=== PATIENT | male | born 1985 | race Caucasian/White ===

== ENCOUNTER 2017-02-25 16:24 | Inpatient (IN) | payer BC ==
[2017-02-25] MEDS ORDERED: HYDROmorphone 1 MG/ML 1 ML SYRINGE IVP STA (16:51)
--- NOTE | 2017-02-25 16:55 | ED ---
General Adult HPI - General Chief complaint: Abdominal Pain Stated complaint: Abd Pain/Sent by Time Seen by Provider: 02/25/17 16:37 Source: patient, RN notes reviewed Mode of arrival: ambulatory Limitations: no limitations - History of Present Illness Initial comments: 31-year-old male presents to the emergency Department chief complaint of right lower quadrant abdominal pain and swelling of the right testicle. Patient states that he started to have some pain around 20 or 30 minutes ago when he was being evaluated different Center but he noticed the swelling about 2:00 today. Patient states is very tender to touch. Patient states he was diagnosed with a urinary tract infection a few days ago and has been on antibiotics. He denies any fever chills nausea vomiting. There were concerned due to the patient's continued symptoms without that they should be evaluated. Patient denies any recent fever, chills, shortness of breath, chest pain, back pain, nausea vomiting, numbness or tingling, dysuria or hematuria, constipation or diarrhea, headaches or visual changes, or any other current symptoms. - Related Data Previous Rx's Medication Instructions Recorded Hydrocodone/Acetaminophen [[place] 1 each PO Q4HR PRN #20 tab 02/23/17 5-325] Ketorolac [Toradol] 10 mg PO Q6HR #15 tab 02/23/17 Levofloxacin [Levaquin] 750 mg PO DAILY #10 tab 02/23/17 Allergies Allergy/AdvReac Type Severity Reaction Status Date / Time No Known Allergies Allergy Verified 02/25/17 16:39 Review of Systems ROS Statement: Those systems with pertinent positive or pertinent negative responses have been documented in the HPI. ROS Other: All systems not noted in ROS Statement are negative. Past Medical History Past Medical History: No Reported History History of Any Multi-Drug Resistant Organisms: None Reported Past Surgical History: No Surgical Hx Reported Past Psychological History: No Psychological Hx Reported Smoking Status: Current every day smoker Past Alcohol Use History: Daily Past Drug Use History: None Reported General Exam - General Exam Comments Initial Comments: General: The patient is awake and alert, in no distress, and does not appear acutely ill. Eye: Pupils are equal, round and reactive to light, extra-ocular movements are intact; there is normal conjunctiva bilaterally. No signs of icterus. Ears, nose, mouth and throat: There are moist mucous membranes and no oral lesions. Neck: The neck is supple, there is no tenderness. Cardiovascular: There is a regular rate and rhythm. No murmur, rub or gallop is appreciated. Respiratory: Lungs are clear to auscultation, respirations are non-labored, breath sounds are equal. No wheezes, stridor, rales, or rhonchi. Gastrointestinal: Soft, non-distended, right lower quadrant tenderness of the abdomen without masses or organomegaly noted patient does have a regard present , no guarding present. No CVA tenderness. Bowel sounds are unremarkable. Back: There is no tenderness to palpation in the midline. There is no obvious deformity. No rashes noted. Musculoskeletal: Normal ROM, no tenderness, There is no pedal edema. There is no calf tenderness or swelling. Sensation intact. Pulses equal bilaterally 2+. Neurological: CN II-XII intact, There are no obvious motor or sensory deficits. Coordination appears grossly intact. Speech is normal. Skin: Skin is warm and dry and no rashes or lesions are noted. Psychiatric: Cooperative, appropriate mood & affect, normal judgment. Limitations: no limitations exam: Present: testicular tenderness, scrotal swelling (Right), circumcision. Absent: urethral discharge, vertical testicular lie Course Vital Signs 02/25/17 02/25/17 16:27 18:53 Temperature 99 F 101.8 F H Pulse Rate 78 67 Respiratory 20 16 Rate Blood Pressure 118/58 125/69 O2 Sat by Pulse 99 98 Oximetry - Reevaluation(s) Reevaluation #1: 02/25/17 19:19 Patient meets sepsis criteria at this time. Medical Decision Making - Medical Decision Making 31-year-old male presents emergency department chief complaint of right lower quadrant abdominal pain. At this time patient's laboratory is reviewed as social elevated white count he does have a very tender abdomen. Workup that showed epididymitis. At this time due to the fact patient denied an outpatient now is developed a fever he continues to have this white count will admit the patient for IV antibiotics. all questions have been answered. - Lab Data Result diagrams: 02/25/17 16:50 02/25/17 16:50 Lab Results 02/25/17 02/25/17 02/25/17 Range/Units 16:50 16:50 18:30 WBC 18.6 H (3.8-10.6) k/uL RBC 3.96 L (4.30-5.90) m/uL Hgb 13.4 (13.0-17.5) gm/dL Hct 39.9 (39.0-53.0) % MCV 100.6 H (80.0-100.0) fL MCH 33.7 (25.0-35.0) pg MCHC 33.5 (31.0-37.0) g/dL RDW 12.7 (11.5-15.5) % Plt Count 242 (150-450) k/uL Neutrophils % 85 % Lymphocytes % 8 % Monocytes % 5 % Eosinophils % 1 % Basophils % 0 % Neutrophils # 15.8 H (1.3-7.7) k/uL Lymphocytes # 1.4 (1.0-4.8) k/uL Monocytes # 0.9 (0-1.0) k/uL Eosinophils # 0.1 (0-0.7) k/uL Basophils # 0.0 (0-0.2) k/uL Sodium 135 L (137-145) mmol/L Potassium 4.0 (3.5-5.1) mmol/L Chloride 99 (98-107) mmol/L Carbon Dioxide 25 (22-30) mmol/L Anion Gap 11 mmol/L BUN 11 (9-20) mg/dL Creatinine 0.96 (0.66-1.25) mg/dL Est GFR (MDRD) Af Amer >60 (>60 ml/min/1.73 sqM) Est GFR (MDRD) Non-Af >60 (>60 ml/min/1.73 sqM) Glucose 92 (74-99) mg/dL Calcium 8.9 (8.4-10.2) mg/dL Total Bilirubin 0.7 (0.2-1.3) mg/dL AST 16 L (17-59) U/L ALT 29 (21-72) U/L Alkaline Phosphatase 74 (38-126) U/L Total Protein 6.7 (6.3-8.2) g/dL Albumin 3.7 (3.5-5.0) g/dL Urine Color Yellow Urine Appearance Cloudy (Clear) Urine pH 6.0 (5.0-8.0) Ur Specific Caroline 1.022 (1.001-1.035) Urine Protein Trace H (Negative) Urine Glucose (UA) Negative (Negative) Urine Ketones Trace H (Negative) Urine Blood Large H (Negative) Urine Nitrite Negative (Negative) Urine Bilirubin Negative (Negative) Urine Urobilinogen <2.0 (<2.0) mg/dL Ur Leukocyte Esterase Large H (Negative) Urine RBC 4 (0-5) /hpf Urine WBC >182 H (0-5) /hpf Urine WBC Clumps Many H (None) /hpf - Radiology Data Radiology results: report reviewed, image reviewed Disposition Clinical Impression: Epididymitis, Pyelonephritis, Failure of outpatient treatment, Sepsis Disposition: ADMITTED IP TO THIS [facility] Condition: Stable Referrals: Mamadou Husain MD [Primary Care Provider] - 1-2 days Time of Disposition: 19:19 Decision Date: 02/25/17 Decision Time: 19:19
[2017-02-25 17:02] LABS: Basophils % (A) 0 %; CH 34.1; Eosinophils # (A) 0.1 k/uL (0-0.7); Eosinophils % (A) 1 %; HCT 39.9 % (39.0-53.0); HDW 2.06; HGB 13.4 gm/dL (13.0-17.5); Luc # (Auto) 0.33; Luc % (Auto) 2; Lymphocytes # (A) 1.4 k/uL (1.0-4.8); Lymphocytes % (A) 8 %; MCH 33.7 pg (25.0-35.0); MCHC 33.5 g/dL (31.0-37.0); MCV 100.6 fL (80.0-100.0); Mean Platelet Volume 6.9; Monocytes # (A) 0.9 k/uL (0-1.0); Monocytes % (A) 5 %; Neutrophils # (A) 15.8 k/uL (1.3-7.7); Neutrophils % (A) 85 %; RBC 3.96 m/uL (4.30-5.90); RDW 12.7 % (11.5-15.5); WBC 18.6 k/uL (3.8-10.6); WBC (Perox) 18.62
[2017-02-25 17:11] LABS: ALT 29 U/L (21-72); AST 16 U/L (17-59); Alkaline Phosphatase 74 U/L (38-126); Anion Gap 11 mmol/L; Blood Urea Nitrogen 11 mg/dL (9-20); Calcium 8.9 mg/dL (8.4-10.2); Carbon Dioxide 25 mmol/L (22-30); Chloride 99 mmol/L (98-107); Glucose 92 mg/dL (74-99); Non-African American GFR(MDRD) >60 (>60 ml/min/1.73 sqM); Sodium 135 mmol/L (137-145); Total Bilirubin 0.7 mg/dL (0.2-1.3); Total Protein 6.7 g/dL (6.3-8.2)
[2017-02-25] MEDS ORDERED: RX INFO: IV CONTRAST WAS GIVEN 1 EACH MISC MISCELLANE PRN (17:47)
--- NOTE | 2017-02-25 17:47 | US ---
EXAMINATION TYPE: US scrotum with doppler. Grayscale and color Doppler Duplex imaging performed of t he scrotum. DATE OF EXAM: 02/25/2017 COMPARISON: NONE CLINICAL HISTORY: Pain. Right testicle pain and edema EXAM MEASUREMENTS: TESTICLES: Right Testicle: 3.6 x 2.5 x 2.8 cm Left Testicle: 3.8 x 1.9 x 2.6 cm EPIDIDYMIS HEAD: Right Epididymis: 1.6 x 0.7 x 1.4 cm Left Epididymis: 0.7 x 0.8 x 0.8 cm Doppler performed to assess for testicular vascularity; good bilateral color flow and waveforms are s een. There is no evidence of testicular torsion. Presence of hydroceles: no Presence of varicoceles: no Hypoechoic area with increased vascularity medial and inferior to testicle measuring 2.0 x 1.4 x 2.8c m IMPRESSION: No testicular torsion or mass. Enlarged right epididymis with hyperemia consistent with e pididymitis.
--- NOTE | 2017-02-25 18:49 | CT ---
EXAMINATION TYPE: CT abdomen pelvis w con DATE OF EXAM: 02/25/2017 COMPARISON: 02/23/2017 HISTORY: RLQ pain with nausea CT DLP: 324.9 mGycm Automated exposure control for dose reduction was used. TECHNIQUE: Helical acquisition of images was performed from the lung bases through the pelvis. CONTRAST: Performed with Oral Contrast and with IV Contrast, patient injected with 100 mL of Omnipaque 300. FINDINGS: There is rectal contrast. Lung bases are clear. There is no pleural effusion. Heart size is normal. Liver spleen pancreas gallbladder appear normal. Bile ducts are not dilated. There is no adrenal mass . There is satisfactory contrast opacification of the kidneys. Right kidney is smaller than the left. There is no evidence of a renal mass. There is no hydronephrosis. There is no retroperitoneal adenop athy. Bladder distends smoothly. There is no ascites. I see no bony destructive process. Appendix sarina ears partly filled with air and posterior to the cecum. I see no intestinal wall thickening. There ar e no dilated loops. IMPRESSION: NEGATIVE CT SCAN OF THE ABDOMEN AND PELVIS. I DO NOT SEE A CAUSE FOR RIGHT LOWER QUADRANT PAIN. APPEN COLEEN APPEARS NORMAL. NO ADVERSE CHANGE COMPARED TO LAST EXAM.
[2017-02-25 18:52] LABS: Appearance,Urine Cloudy (Clear); Bilirubin,Urine Negative (Negative); Glucose,Urine (UA) Negative (Negative); Ketones,Urine Trace (Negative); Leukocyte Esterase,Urine Large (Negative); Nitrite,Urine Negative (Negative); Particle Count 6430; Protein,Urine Trace (Negative); RBC,Urine 4 /hpf (0-5); Specific Gravity,Urine 1.022 (1.001-1.035); UA Billing (MACRO vs. MICRO) MICRO; Urobilinogen,Urine <2.0 mg/dL (<2.0); WBC,Urine >182 /hpf (0-5)
[2017-02-25] MEDS ORDERED: LEVOFLOXACIN 750MG-D5W PMX 750 MG in DEXTROSE/WATER 1 150ML.BAG IVPB STA (19:16)
[2017-02-25] MEDS ORDERED: KETOROLAC 30 MG/ML 1 ML VIAL IVP PRN (19:20)
[2017-02-25] MEDS ORDERED: IBUPROFEN 400 MG TAB PO PRN (19:20)
[2017-02-25] MEDS ORDERED: NALOXONE 0.4 MG/ML 1 ML VIAL IV PRN (19:20)
[2017-02-25] MEDS ORDERED: ONDANSETRON 4 MG/2 ML VIAL IVP PRN (19:20)
[2017-02-25] MEDS ORDERED: cefTRIAXone IN SWFI 1,000 MG/10 ML SYRINGE IVP ONE (19:30)
[2017-02-25] MEDS: SODIUM CHLORIDE 0.9% 1,000 ML IV SCH (19:56)
[2017-02-25] MEDS: ACETAMINOPHEN TAB 325 MG TAB PO PRN (20:09)
[2017-02-25] MEDS: HYDROmorphone 1 MG/ML 1 ML SYRINGE IVP PRN (20:09)
[2017-02-25 22:55] VITALS: BMI 21.5
[2017-02-26] MEDS: HYDROmorphone 1 MG/ML 1 ML SYRINGE IVP PRN ×7 (00:48→21:20)
[2017-02-26] MEDS: SODIUM CHLORIDE 0.9% 1,000 ML IV SCH (07:37)
[2017-02-26 07:50] LABS: Basophils % (A) 0 %; CH 32.9; CHCM 32.5; Eosinophils # (A) 0.1 k/uL (0-0.7); Eosinophils % (A) 1 %; HCT 36.8 % (39.0-53.0); HDW 2.01; Luc # (Auto) 0.24; Luc % (Auto) 2; Lymphocytes # (A) 1.3 k/uL (1.0-4.8); Lymphocytes % (A) 9 %; MCH 33.2 pg (25.0-35.0); MCHC 32.6 g/dL (31.0-37.0); MCV 101.9 fL (80.0-100.0); Macrocytosis Slight; Mean Platelet Volume 7.8; Monocytes # (A) 0.5 k/uL (0-1.0); Monocytes % (A) 4 %; Neutrophils # (A) 12.3 k/uL (1.3-7.7); Neutrophils % (A) 85 %; RBC 3.61 m/uL (4.30-5.90); RDW 13.8 % (11.5-15.5); WBC 14.4 k/uL (3.8-10.6); WBC (Perox) 15.71
[2017-02-26 08:02] LABS: ALT 29 U/L (21-72); AST 13 U/L (17-59); Alkaline Phosphatase 65 U/L (38-126); Anion Gap 9 mmol/L; Blood Urea Nitrogen 9 mg/dL (9-20); Calcium 8.7 mg/dL (8.4-10.2); Carbon Dioxide 24 mmol/L (22-30); Chloride 103 mmol/L (98-107); Glucose 91 mg/dL (74-99); Non-African American GFR(MDRD) >60 (>60 ml/min/1.73 sqM); Potassium 4.4 mmol/L (3.5-5.1); Sodium 136 mmol/L (137-145); Total Bilirubin 0.4 mg/dL (0.2-1.3); Total Protein 5.8 g/dL (6.3-8.2)
[2017-02-26] MEDS: ENOXAPARIN 40 MG/0.4 ML SYRINGE SQ SCH (10:42)
--- NOTE | 2017-02-26 13:36 | HP ---
HISTORY AND PHYSICAL DATE OF ADMISSION: 02/25/17. PRESENTING COMPLAINT: Abdominal pain. HISTORY OF PRESENTING COMPLAINT: This is a pleasant 31-year-old patient of Dr. Husain, unremarkable past medical history. For 3 or 4 days patient has been having abdominal symptoms. The patient states he started off with pain in the upper abdomen and the back, but he noticed pain down in the pelvic area. He also noticed some difficulty in urinating and fullness in the pelvis. The patient did come down to the ER 2 days ago. The patient also noticed his urine to become pink and a bit cloudy. He has been having fevers. Appetite has slightly gone down, tired, fevers, tired, run down. The patient's is at the bedside. Earlier my nurse practitioner, Ms. Mcfaddenelisacarroll had talked to the patient and he asked to be checked for STDs. The patient's bowel movements are fine. REVIEW OF SYSTEMS: CONSTITUTIONAL: Febrile, tired. HEENT: None. RESPIRATORY: None. CARDIOVASCULAR: None. GASTROINTESTINAL: As above. GENITOURINARY: As above. MUSCULOSKELETAL: None. DERMATOLOGIC, HEMATOLOGIC, LYMPHATIC: None. PSYCHIATRY AND NEUROLOGIC: None. PAST MEDICAL HISTORY: None. PAST SURGICAL HISTORY: Arthroscopic knee surgery. SOCIAL HISTORY: . 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 Drinks 2 beers a day. Smokes about half a pack a day. FAMILY HISTORY: Cancer, type unknown. HOME MEDICATIONS: Levaquin 750 mg a day, [place]. ALLERGIES: None. PHYSICAL EXAMINATION: On exam temperature 101.8, pulse 57, respirations 16, blood pressure 120/69, pulse ox 98% on room air. GENERAL APPEARANCE: Thin build, lying in bed tired appearing. EYES: Pupils equal. Conjunctivae normal. HEENT: Oral cavity normal. NECK: JVD not raised. Mass not palpable. RESPIRATORY: Effort, lungs are clear. CARDIOVASCULAR: 1st and 2nd sounds. No edema. ABDOMEN: Soft, some suprapubic tenderness. No tenderness in the liver, flank. Liver and spleen not palpable. LYMPHATIC: No lymph nodes palpable in neck or axillae. PSYCHIATRY: Alert and oriented x3. Mood and affect normal. NEUROLOGICAL: Pupils equal. Cranial nerves grossly intact. Power and sensation grossly intact. INVESTIGATIONS: White count 8.6, hemoglobin 13.4, potassium 4 4. UA positive for blood, leuko esterase, WBC 182. The patient's UA from 02/23/17 did show an RBC of 135. Urine culture is growing E coli. Blood cultures negative. The patient did have a CT scan of the abdomen and pelvis. ASSESSMENT: This is a patient who presents with sepsis picture. Initial symptoms are upper abdomen and then seem to travel down to his pelvis and groin. This could well be a stone with a secondary infection. The patient also did complain is some pinkish urine and discharge in the urine. There was a question about prostatitis and cystitis and STD cannot be ruled out. PLAN: Patient will be started on IV fluids at 150 mL an hour. Put on IV Levaquin. Encourage oral intake. The patient's urine will be sent off for chlamydia and also will try to do a penile swab for gonococcus. We already have a UTI culture that is positive for E coli. Care was discussed the patient. Repeat labs in the morning. Will get a urology opinion. MMODL / IJN: [id number] /
[2017-02-26] MEDS: LACTATED RINGERS 1,000 ML IV SCH ×2 (13:41→22:11)
[2017-02-26] MEDS: NICOTINE 14MG/24HR PATCH TRANSDERM SCH (13:45)
[2017-02-26] MEDS: IBUPROFEN 600 MG TAB PO SCH ×2 (16:50→22:11)
[2017-02-26] MEDS: LEVOFLOXACIN 750MG-D5W PMX 750 MG in DEXTROSE/WATER 1 150ML.BAG IVPB SCH (16:52)
[2017-02-27] MEDS: LACTATED RINGERS 1,000 ML IV SCH ×4 (04:33→20:58)
[2017-02-27 07:10] LABS: Basophils % (A) 0 %; CH 32.7; Eosinophils # (A) 0.1 k/uL (0-0.7); Eosinophils % (A) 1 %; HCT 37.7 % (39.0-53.0); HDW 2.03; HGB 12.1 gm/dL (13.0-17.5); Luc # (Auto) 0.28; Luc % (Auto) 3; Lymphocytes # (A) 1.4 k/uL (1.0-4.8); Lymphocytes % (A) 16 %; MCH 32.9 pg (25.0-35.0); MCHC 32.1 g/dL (31.0-37.0); MCV 102.6 fL (80.0-100.0); Macrocytosis Slight; Mean Platelet Volume 7.5; Monocytes # (A) 0.4 k/uL (0-1.0); Monocytes % (A) 5 %; Neutrophils # (A) 6.5 k/uL (1.3-7.7); Neutrophils % (A) 74 %; RBC 3.67 m/uL (4.30-5.90); RDW 14.1 % (11.5-15.5); WBC 8.8 k/uL (3.8-10.6)
[2017-02-27 07:18] LABS: Anion Gap 5 mmol/L; Blood Urea Nitrogen 9 mg/dL (9-20); Calcium 9.3 mg/dL (8.4-10.2); Carbon Dioxide 30 mmol/L (22-30); Chloride 106 mmol/L (98-107); Glucose 91 mg/dL (74-99); Non-African American GFR(MDRD) >60 (>60 ml/min/1.73 sqM); Potassium 4.9 mmol/L (3.5-5.1); Sodium 141 mmol/L (137-145)
--- NOTE | 2017-02-27 08:40 | P.PN ---
Subjective Progress Note Date: 02/27/17 The patient is in the hospital with an epididymitis and prostatitis. He is on culture specific antibiotics. He is doing better today. His white count is down to 8.8. The Motrin added to the antibiotics has helped in the swelling is decreased. From a urologic standpoint he can be discharged home when he can tolerate the pain on oral medication. He would need to be seen in my office in about one week. He'll need to be at least on 28 days of antibiotics. He should be on Motrin for another 5 days 600 3 times a day. Objective - Vital Signs Vital signs: Vital Signs Temp 98.0 F 02/26/17 23:00 Pulse 53 L 02/26/17 23:00 Resp 16 02/26/17 23:00 BP 117/55 02/26/17 23:00 Pulse Ox 98 02/26/17 23:00 Intake & Output 02/26/17 02/27/17 02/27/17 18:59 06:59 18:59 Intake Total 850 1040 Balance 850 1040 Weight 76.204 kg Intake: IV 850 450 Lactated Ringers 1,000 ml 150 450 @ 150 mls/hr IV .Q6H40M JACQUIE Rx#:[id number] Sodium Chloride 0.9% 1, 700 000 ml @ 100 mls/hr IV . Q10H JACQUIE Rx#:[id number] Oral 590 Other: # Voids 2 1 - Labs CBC & Chem 7: 02/27/17 06:23 02/27/17 06:23 Labs: Abnormal Lab Results - Last 24 Hours (Table) 02/27/17 Range/Units 06:23 RBC 3.67 L (4.30-5.90) m/uL Hgb 12.1 L (13.0-17.5) gm/dL Hct 37.7 L (39.0-53.0) % MCV 102.6 H (80.0-100.0) fL Microbiology - Last 24 Hours (Table) 02/25/17 18:30 Urine Culture - Final Urine,Voided 02/25/17 19:40 Blood Culture - Preliminary Blood No Growth after 24 hours
[2017-02-27] MEDS: ENOXAPARIN 40 MG/0.4 ML SYRINGE SQ SCH (09:21)
[2017-02-27] MEDS: NICOTINE 14MG/24HR PATCH TRANSDERM SCH (09:21)
[2017-02-27] MEDS: IBUPROFEN 600 MG TAB PO SCH ×3 (09:22→21:31)
--- NOTE | 2017-02-27 17:10 | P.PN ---
Progress Note - Text Progress Note Date: 02/27/17 DATE OF SERVICE: 02/27/2017 PRESENTING COMPLAINT: Abdominal pain HISTORY OF PRESENT ILLNESS: 31-year-old male presented with abdominal pain started in his upper abdomen and back and went down to his pelvic area noticed some difficulty urinating of fullness in the pelvis. Did come to the ER couple of days ago. Noticed his urine to become more pink and cloudy with fevers, appetite is decreased, fevers , tired, run down and was admitted for the same. INTERVAL HISTORY: 02/27/2017: Patient lying in bed appears more comfortable today. Continues to have right- sided abdominal pain that radiates down to his groin, scrotum continues to be red swollen tender to palpation. Patient states his urinary symptoms are improving. Tolerating his diet, able to ambulate to and from the bathroom, last BM 02/26/2017. REVIEW OF SYSTEMS: Done for constitutional ,cardiovascular, GI, pulmonary with relevant findings as above. CURRENT MEDICATIONS Acetaminophen, Lovenox, Dilaudid, Motrin, Toradol, levofloxacin IV, nicotine patch, Zofran. PHYSICAL EXAM VITAL SIGNS: Temperature 97.6, pulse 60, respiratory rate 16, blood pressure 124/74, oxygen saturation 98% on room air. GENERAL APPEARANCE: Lying in bed, not in distress. EYES: Pupils equal. Conjunctiva normal. NECK: JVD not raised. Mass not palpable. RESPIRATORY: Respiratory effort normal. Lungs clear to auscultation. CARDIOVASCULAR: First and second sounds normal. No edema. ABDOMEN: Soft. Liver and spleen not palpable. Mild right quadrant tenderness. No mass palpable. PSYCHIATRY: Alert and oriented x3. Mood and affect normal. GENITOURINARY: Testicles warm, red tender to palpation swollen INVESTIGATIONS: White blood cell count 8.8, hemoglobin 12.1, BMP unremarkable. ASSESSMENT: -Acute urinary tract infection from E coli causing acute cystitis, acute Epididymitis and acute prostatitis, causing sepsis on presentation -Acute urinary tract infection with urine culture growing E. coli, PLAN: IV fluids at 150 mL an hour, IV Levaquin, encourage oral intake. Urine was sent for chlamydia and penile swab for gonococcus pending. If patient remains afebrile will be discharged tomorrow. Plan of care discussed with patient he is in agreement. GLOBE TESTER statement: Patient was seen and examined by nurse practitioner Xena Griffin and all elements of the case discussed with attending Dr. Toussaint
[2017-02-27] MEDS: LEVOFLOXACIN 750MG-D5W PMX 750 MG in DEXTROSE/WATER 1 150ML.BAG IVPB SCH (17:21)
[2017-02-27 22:16] VITALS: RESP 16
--- NOTE | 2017-02-27 22:52 | PN ---
PROGRESS NOTE DATE OF SERVICE: 02/27/17. ATTENDING NOTE: The patient is seen and examined by me. I discussed with nurse practitioner, Ms. Griffin. This is a patient who now seems to have had acute UTI with cystitis, prostatitis and epididymitis. Overall doing better. Fevers are coming down. Tolerating a diet. This patient is seen and examined by me. I discussed with my nurse practitioner, Ms. Griffin. PHYSICAL EXAMINATION: On examination afebrile. Pulse 60, respirations 16, blood pressure 120/74. Lungs are clear. Cardiovascular first and second sounds normal. Abdomen tenderness nearly resolved. White count 8.8. Urine cultures growing E coli. ASSESSMENT: Acute urinary tract infection from E coli along with causing acute cystitis, acute prostatitis and acute epididymitis. PLAN: If the patient remains afebrile for next 24 hours, patient will be discharged overall doing better. Care was discussed with the patient. The patient's PSA was 0.95. I did talk to the patient. Patient has no STD risk factors and has no sexual intercourse outside of his marriage. MMODL / IJN: [id number] /
[2017-02-28] MEDS: ACETAMINOPHEN TAB 325 MG TAB PO PRN (00:06)
[2017-02-28 07:13] LABS: Basophils % (A) 0 %; CH 33.8; CHCM 32.8; Eosinophils # (A) 0.1 k/uL (0-0.7); Eosinophils % (A) 2 %; HCT 38.6 % (39.0-53.0); HDW 2.07; Luc # (Auto) 0.18; Luc % (Auto) 2; Lymphocytes # (A) 1.7 k/uL (1.0-4.8); Lymphocytes % (A) 18 %; MCH 32.3 pg (25.0-35.0); MCHC 31.2 g/dL (31.0-37.0); MCV 103.4 fL (80.0-100.0); Macrocytosis Slight; Mean Platelet Volume 7.1; Monocytes # (A) 0.4 k/uL (0-1.0); Monocytes % (A) 4 %; Neutrophils # (A) 6.7 k/uL (1.3-7.7); Neutrophils % (A) 73 %; RBC 3.73 m/uL (4.30-5.90); RDW 12.7 % (11.5-15.5); WBC 9.2 k/uL (3.8-10.6); WBC (Perox) 9.46
[2017-02-28] MEDS: LACTATED RINGERS 1,000 ML IV SCH ×2 (07:30→16:01)
[2017-02-28 07:32] LABS: Anion Gap 8 mmol/L; Blood Urea Nitrogen 10 mg/dL (9-20); Calcium 9.1 mg/dL (8.4-10.2); Carbon Dioxide 27 mmol/L (22-30); Chloride 106 mmol/L (98-107); Glucose 89 mg/dL (74-99); Non-African American GFR(MDRD) >60 (>60 ml/min/1.73 sqM); Potassium 4.5 mmol/L (3.5-5.1); Sodium 141 mmol/L (137-145)
[2017-02-28 07:57] VITALS: BP 110/67; PULSE 59; TEMP 98
[2017-02-28] MEDS: IBUPROFEN 600 MG TAB PO SCH ×2 (08:16→16:00)
[2017-02-28] MEDS: NICOTINE 14MG/24HR PATCH TRANSDERM SCH (08:16)
[2017-02-28] MEDS: ENOXAPARIN 40 MG/0.4 ML SYRINGE SQ SCH (08:18)
--- NOTE | 2017-02-28 10:24 | P.PN ---
Subjective Progress Note Date: 02/28/17 The patient is in the hospital for an acute epididymal orchitis that failed outpatient therapy. He is feeling much better. He is on culture specific antibiotic. His swelling is much less. From a urologic standpoint he can be discharged home on antibiotic. He's been instructed to take Motrin 600 mg 3 times a day for the week. I would like to see him in the office in one week. Objective - Vital Signs Vital signs: Vital Signs Temp 98 F 02/28/17 07:00 Pulse 59 L 02/28/17 10:12 Resp 16 02/28/17 10:12 BP 110/67 02/28/17 07:00 Pulse Ox 99 02/28/17 07:00 Intake & Output 02/27/17 02/28/17 02/28/17 18:59 06:59 18:59 Intake Total 1200 1180 Balance 1200 1180 Intake: IV 1200 Lactated Ringers 1,000 ml 1200 @ 150 mls/hr IV .Q6H40M JACQUIE Rx#:[id number] Oral 1180 Other: Voiding Method Toilet Toilet Toilet Urinal # Voids 1 2 # Bowel Movements 2 - Labs CBC & Chem 7: 02/28/17 06:37 02/28/17 06:37 Labs: Abnormal Lab Results - Last 24 Hours (Table) 02/28/17 Range/Units 06:37 RBC 3.73 L (4.30-5.90) m/uL Hgb 12.0 L (13.0-17.5) gm/dL Hct 38.6 L (39.0-53.0) % MCV 103.4 H (80.0-100.0) fL Microbiology - Last 24 Hours (Table) 02/25/17 19:40 Blood Culture - Preliminary Blood No Growth after 48 hours
--- NOTE | 2017-03-01 05:26 | DS ---
DISCHARGE SUMMARY DATE OF ADMISSION: 02/25/17. DATE OF DISCHARGE: 02/28/17. FINAL DIAGNOSES: Acute severe urinary tract infection from E coli causing acute cystitis, acute prostatitis and acute epididymidis causing sepsis. HOSPITAL COURSE: This patient presented with a deep pelvic pain felt to be a combination of prostatitis, UTI, cystitis, and probably epididymidis with some scrotal involvement. The patient's urine culture from 02/23/17 was positive for E coli when he first had come to the ER. Doing much better at the time of discharge, has become afebrile. White count has normalized. Apparently improved. Urine symptoms completely resolved. The patient is seen by Dr. Sparks from Urology who will see the patient as an outpatient. Today care was discussed the patient and . Questions were answered. EXAMINATION: ABDOMEN: Soft, nontender. LUNGS: Clear. DC MEDICATIONS: 1. Motrin 600 mg p.o. t.i.d. 15 tablets. 2. Levaquin 750 mg p.o. daily, 25 tablets. 3. Nicotine 14 mg patch. The patient encouraged to drink more water. Follow up with Dr. Husain in 3 days, follow up with Dr. Sparks in 1 week. Discharge planning more than 35 minutes. MMODL / IJN: [id number] /
== END 2017-02-28 16:15 | disposition home or self-care (01) | DRG 872 ==
LOC: EC 16:24 → 5MS5E 19:27
PROVIDERS: ADMIT Hospitalist; ATTEND Hospitalist
DX: A41.51 Sepsis due to Escherichia coli [E. coli] (principal); N30.00 Acute cystitis without hematuria; N41.0 Acute prostatitis; N45.3 Epididymo-orchitis; F17.210 Nicotine dependence, cigarettes, uncomplicated; Z79.2 Long term (current) use of antibiotics; Z79.891 Long term (current) use of opiate analgesic
CPT/HCPCS: 36415; 74177; 76870; 80048; 80053; 81001; 83605; 85025; 87040; 87086; 93975; 96365; 96375; 96376; 99285

== ENCOUNTER → 2020-09-09 | Outpatient (CLI) | payer MEDICAID ==
--- NOTE | 2020-09-10 06:34 | MR ---
EXAMINATION TYPE: MR knee LT wo con DATE OF EXAM: 09/09/2020 COMPARISON: None. HISTORY: Left knee pain for several months, feels like a rubber band snaps/slides over medial part of knee. TECHNIQUE: Multiplanar, multisequence imaging of the left knee is performed without IV contrast. FINDINGS: MEDIAL MENISCUS: Anterior and posterior horns are intact without tear. LATERAL MENISCUS: Anterior and posterior horns are intact without tear. CRUCIATE LIGAMENTS: The anterior and posterior cruciate ligaments are intact and unremarkable. COLLATERAL LIGAMENTS: The medial collateral ligament and lateral collateral ligament complex are inta ct and unremarkable. EXTENSOR MECHANISM: Visualized quadriceps and patellar tendons are intact. EFFUSION: No significant suprapatellar joint effusion. POPLITEAL CYST: Moderate to large size multiseptated popliteal/bates cyst measuring 8.3 cm long axis sagittal image 26. TRICOMPARTMENT SPACES: Mild to moderate tricompartment joint space narrowing greatest medial tibial f emoral compartment somewhat prominent for patient's age. Mild tricompartment joint space spurring. CARTILAGE: Some cartilaginous loss medial tibiofemoral compartment. BONE MARROW SIGNAL: Some reactive low T1 and increased T2 signal distal aspect medial femoral condyle s for reference sagittal image 25. OTHER: No additional significant abnormality is appreciated. IMPRESSION: 1. No meniscal or ligamentous tear is seen. 2. Moderate to large size multiseptated popliteal cyst. 3. Mild to moderate tricompartment degenerative changes most prominent medial tibiofemoral compartmen t as detailed above somewhat prominent for patient's chronologic age presumed on the basis of or jacobo y osteoarthritis.
--- NOTE | 2020-09-10 06:36 | MR ---
EXAMINATION TYPE: MR knee RT wo con DATE OF EXAM: 09/09/2020 COMPARISON: None. HISTORY: Right knee pain for 9 months after tripping and falling on lateral side of knee. TECHNIQUE: Multiplanar, multisequence imaging of the right knee is performed without IV contrast. FINDINGS: MEDIAL MENISCUS: Anterior and posterior horns are intact without tear. LATERAL MENISCUS: Anterior and posterior horns are intact without tear. CRUCIATE LIGAMENTS: The anterior and posterior cruciate ligaments are intact and unremarkable. COLLATERAL LIGAMENTS: The medial collateral ligament and lateral collateral ligament complex are inta ct and unremarkable. EXTENSOR MECHANISM: Visualized quadriceps and patellar tendons are intact. EFFUSION: No significant suprapatellar joint effusion. POPLITEAL CYST: Small leaking popliteal/bates cyst. TRICOMPARTMENT SPACES: Mild tricompartment joint space loss and spurring. CARTILAGE: Tricompartment articular cartilage fairly well-maintained. BONE MARROW SIGNAL: No focal abnormal marrow signal is appreciated. OTHER: No additional significant abnormality is appreciated. IMPRESSION: No meniscal or ligamentous tear is seen. Mild tricompartment degenerative changes. Small leaking popliteal cyst.
== END | disposition home or self-care (01) ==
LOC: RADMRIMAIN 20:05
PROVIDERS: ATTEND Orthopaedic Surgery
DX: M17.0 Bilateral primary osteoarthritis of knee (principal); M71.22 Synovial cyst of popliteal space [Baker], left knee; M71.21 Synovial cyst of popliteal space [Baker], right knee

== ENCOUNTER 2023-05-04 10:15 | Emergency (ER) | payer BC, MEDICAID ==
[2023-05-04 11:27] VITALS: TEMP 97.9
[2023-05-04] MEDS ORDERED: LIDOCAINE 4% PATCH TOPICAL ONE (11:34)
[2023-05-04] MEDS ORDERED: KETOROLAC 15 MG/ML 1 ML VIAL IM STA (11:34)
[2023-05-04] MEDS ORDERED: ACETAMINOPHEN TAB 325 MG TAB PO STA (11:35)
--- NOTE | 2023-05-04 12:03 | ED ---
General Adult HPI - General Chief complaint: Back Pain/Injury Stated complaint: Siatic nerve pain Time Seen by Provider: 05/04/23 11:07 Source: patient, RN notes reviewed Mode of arrival: wheelchair Limitations: no limitations - History of Present Illness Initial comments: 38-year-old male presents emergency department for evaluation of low back pain radiating down the left leg. He states that this has been going on for one month but worse over the past 2 days after slipping on ice. He states that he has been taking ibuprofen and muscle relaxers with minimal relief. He reports that he was doing physical therapy for this with some improvement but after the injury it is worse. He reports prior XR at his PCPs office. Patient states that he was sent in today by his PCP for CT scan of his back. Denies loss of bowel or bladder function, saddle anesthesia, fever, chills. - Related Data Previous Rx's Medication Instructions Recorded Ketorolac [Toradol] 10 mg PO Q8HR #15 tab 05/04/23 Lidocaine 5% Patch [Lidoderm 5% 1 patch TOPICAL DAILY #30 patch 05/04/23 Patch] Allergies Allergy/AdvReac Type Severity Reaction Status Date / Time No Known Allergies Allergy Verified 05/04/23 12:06 Review of Systems ROS Statement: Those systems with pertinent positive or pertinent negative responses have been documented in the HPI. ROS Other: All systems not noted in ROS Statement are negative. Past Medical History Past Medical History: No Reported History Additional Past Medical History / Comment(s): Back pain History of Any Multi-Drug Resistant Organisms: None Reported Past Surgical History: Orthopedic Surgery Additional Past Surgical History / Comment(s): arthroscopic knee surgery Past Anesthesia/Blood Transfusion Reactions: Postoperative Nausea & Vomiting (PONV) Past Psychological History: No Psychological Hx Reported Smoking Status: Current every day smoker Past Alcohol Use History: Daily Past Drug Use History: None Reported - Past Family History Father History Unknown: Yes Family Medical History: Cancer Mother History Unknown: Yes Family Medical History: Cancer General Exam Limitations: no limitations General appearance: alert, in no apparent distress Head exam: Present: atraumatic, normocephalic, normal inspection Eye exam: Present: normal appearance, PERRL, EOMI. Absent: scleral icterus, conjunctival injection, periorbital swelling ENT exam: Present: normal exam, mucous membranes moist Neck exam: Present: normal inspection. Absent: tenderness, meningismus, lymphadenopathy Respiratory exam: Present: normal lung sounds bilaterally. Absent: respiratory distress, wheezes, rales, rhonchi, stridor Cardiovascular Exam: Present: regular rate, normal rhythm, normal heart sounds. Absent: systolic murmur, diastolic murmur, rubs, gallop, clicks GI/Abdominal exam: Present: soft, normal bowel sounds. Absent: distended, tenderness, guarding, rebound, rigid Extremities exam: Present: normal inspection, full ROM, normal capillary refill, other (DP and PT pulses 2+). Absent: tenderness, pedal edema, joint swelling, calf tenderness Back exam: Present: normal inspection, full ROM, tenderness Neurological exam: Present: alert, oriented X3 Psychiatric exam: Present: normal affect, normal mood Skin exam: Present: warm, dry, intact, normal color. Absent: rash Course Vital Signs 05/04/23 05/04/23 05/04/23 10:35 11:24 13:19 Temperature 98.1 F 97.9 F Pulse Rate 70 72 66 Respiratory 18 18 20 Rate Blood Pressure 122/58 136/78 131/77 O2 Sat by Pulse 99 99 99 Oximetry Medical Decision Making - Medical Decision Making Was pt. sent in by a medical professional or institution (SADIE Gillis, TRANSACTION COORDINATOR, urgent care, hospital, or fci...) When possible be specific @ -No Did you speak to anyone other than the patient for history (EMS, parent, family, police, friend...)? What history was obtained from this source @ -No Did you review nursing and triage notes (agree or disagree)? Why? @ -I reviewed and agree with nursing and triage notes Were old charts reviewed (outside hosp., previous admission, EMS record, old EKG, old radiological studies, urgent care reports/EKG's, fci records)? Report findings @ -No old charts were reviewed Differential Diagnosis (chest pain, altered mental status, abdominal pain women, abdominal pain men, vaginal bleeding, weakness, fever, dyspnea, syncope, headache, dizziness, GI bleed, back pain, seizure, CVA, palpatations, mental health, musculoskeletal)? @ -Differential Back Pain: Strain, zoster, cauda equina syndrome, epidural abscess, vertebral osteomyelitis, discitis, fracture, subluxation, disc herniation, DJD, spinal stenosis, dissection, AAA, pancreatitis, peptic ulcer disease, pyelonephritis, kidney stone, this is not meant to be an all-inclusive list. EKG interpreted by me (3pts min.). @ -none X-rays interpreted by me (1pt min.). @ -None done CT interpreted by me (1pt min.). @ -Lumbar spine shows bulging disks from L2 to L5, herniated disc at L4-L5 U/S interpreted by me (1pt. min.). @ -None done What testing was considered but not performed or refused? (CT, X-rays, U/S, labs)? Why? @ -None What meds were considered but not given or refused? Why? @ -None Did you discuss the management of the patient with other professionals (professionals i.e. , PA, TRANSACTION COORDINATOR, lab, RT, psych nurse, public health social worker, supply chain generalist, teacher, homicide squad commanding officer, casework supervisor)? Give summary @ -No Was smoking cessation discussed for >3mins.? @ -No Was critical care preformed (if so, how long)? @ -No Were there social determinants of health that impacted care today? How? (Homelessness, low income, unemployed, alcoholism, drug addiction, transportation, low edu. Level, literacy, decrease access to med. care, usp, rehab)? @ -No Was there de-escalation of care discussed even if they declined (Discuss DNR or withdrawal of care, Hospice)? DNR status @ -No What co-morbidities impacted this encounter? (DM, HTN, Smoking, COPD, CAD, Cancer, CVA, ARF, Chemo, Hep., AIDS, mental health diagnosis, sleep apnea, morbid obesity)? @ -None Was patient admitted / discharged? Hospital course, mention meds given and route, prescriptions, significant lab abnormalities, going to OR and other pertinent info. @ -Discharged Patient presented to the emergency department for evaluation of back pain radiating down his left leg. He states that he has been in physical therapy and has had x-rays of his back. He reports a new injury 2 days ago and states that his pain has been worse since then. He does admit to taking ibuprofen and a muscle relaxer at home this morning. Patient has not followed with orthopedic spine up to this point. Patient is not presenting with any red flag symptoms at this time including possible bladder function, saddle anesthesia, fever, chills, urinary retention. CT of the lumbar spine was obtained which shows a herniated disc at L4-L5 along with bulging disks from L2 to L5. Discussed the findings with the patient and that likely etiology of this symptoms. Patient was given a dose of Toradol and lidocaine patch in the emergency department which he reports helped his pain. Prescription sent to the patient's pharmacy for this medication. Advised patient not to take other anti- inflammatories with Toradol. Patient understands and agreeable with discharge plan and follow-up with ortho spine. Patient stable at time of discharge. Case discussed with Dr. Mauricio. Undiagnosed new problem with uncertain prognosis? @ -No Drug Therapy requiring intensive monitoring for toxicity (Heparin, Nitro, Insulin, Cardizem)? @ -No Were any procedures done? @ -No Diagnosis/symptom? @ -Herniated disc Acute, or Chronic, or Acute on Chronic? @ -acute Uncomplicated (without systemic symptoms) or Complicated (systemic symptoms)? @ -uncomplicated Side effects of treatment? @ -No Exacerbation, Progression, or Severe Exacerbation? @ -No Poses a threat to life or bodily function? How? (Chest pain, [place], [place], pneumonia, PE, COPD, DKA, ARF, appy, cholecystitis, CVA, Diverticulitis, Homicidal, Suicidal, threat to staff... and all critical care pts) @ -No Disposition Clinical Impression: Lumbar herniated disc Disposition: HOME SELF-CARE Condition: Stable Instructions (If sedation given, give patient instructions): Acute Low Back Pain (ED) Additional Instructions: Please follow up with your primary care provider. Continue with your physical therapy. Return to the emergency department for new or worsening symptoms. Prescriptions: Lidocaine 5% Patch [Lidoderm 5% Patch] 1 patch TOPICAL DAILY #30 patch Ketorolac [Toradol] 10 mg PO Q8HR #15 tab Is patient prescribed a controlled substance at d/c from ED?: No Referrals: Mamadou Husain MD [Primary Care Provider] - 1-2 days Pj Gates DO [Doctor of Osteopathic Medicine] - 1-2 days
--- NOTE | 2023-05-04 12:29 | CT ---
EXAMINATION TYPE: CT lumbar spine wo con DATE OF EXAM: 05/04/2023 COMPARISON: None HISTORY: 38-year-old male pain TECHNIQUE: Contiguous axial scanning of the lumbar spine without IV contrast. Coronal and sagittal re constructions performed. CT DLP: 704.7 mGycm Automated exposure control for dose reduction was used. FINDINGS: Vertebral body heights are preserved and alignment is maintained. Moderate degenerative disc disease especially towards the right at L3-L4 where there is also endplate irregularity and sclerosis. Bulging disks L2-L5 levels. The disc bulging impressing upon to the ventral thecal sac and multiple l evels but does not cause any significant spinal canal stenosis. At L4-L5, there is a possible intraforaminal and left lateral disc protrusion that could impinge the exiting left L4 nerve root and contributes to moderate to severe neuroforaminal stenosis. Additional levels of mild neural foraminal narrowing especially on the right at L3-L4 and L4-L5. IMPRESSION: 1. MODERATE DEGENERATIVE DISC DISEASE PREFERENTIALLY TOWARDS THE RIGHT AT L3-L4. ADDITIONAL BULGING D ISCS FROM L2 THROUGH L5 LEVELS. 2. NO VERTEBRAL COMPRESSION COLLAPSE OR MALALIGNMENT. 3. POSSIBLE INTRAFORAMINAL AND LEFT LATERAL DISC HERNIATION AT L4-L5 THAT COULD IMPINGE THE EXITING L EFT L4 NERVE ROOT AND CONTRIBUTE TO MODERATE TO SEVERE LEFT NEURAL FORAMINAL STENOSIS. 4. NO SPINAL CANAL STENOSIS BY CT.
[2023-05-04 13:25] VITALS: BP 131/77; PULSE 66; RESP 20
== END 2023-05-04 13:20 | disposition home or self-care (01) ==
LOC: EC 10:15
DX: M51.36 Other intervertebral disc degeneration, lumbar region (principal); F17.200 Nicotine dependence, unspecified, uncomplicated
CPT/HCPCS: 72131; 99284; 96372; J1885

== ENCOUNTER → 2023-07-26 | Outpatient (CLI) | payer BC ==
[2023-07-26 13:23] LABS: INR 0.9 (<1.2); Partial Thromboplastin Time 25.6 sec (22.0-30.0); Prothrombin Time 10.4 sec (10.0-12.5)
[2023-07-26 16:23] LABS: Appearance,Urine Clear (Clear); Bilirubin,Urine Negative (Negative); Blood,Urine Negative (Negative); Color,Urine Yellow (Yellow); Ketones,Urine 15 (Negative); Nitrite,Urine Negative (Negative); PH, Urine 5.5; Specific Gravity,Urine 1.011 (1.001-1.030); Urobilinogen,Urine 0.2 E.U./DL
[2023-07-26 16:25] LABS: Blood Urea Nitrogen 11.2 mg/dL (9.0-27.0); Calcium 10.3 mg/dL (8.7-10.3); Carbon Dioxide 26.4 mmol/L (21.6-31.8); Chloride 101 mmol/L (96-109); Glucose 87 mg/dL (70-110); Potassium 4.4 mmol/L (3.5-5.5); Sodium 139 mmol/L (135-145)
[2023-07-26 17:06] LABS: Basophils # (A) 0.04 X 10*3/uL (0.00-0.10); Basophils % (A) 0.5 %; Eosinophils # (A) 0.16 X 10*3/uL (0.04-0.35); HCT 42.7 % (39.6-50.0); HGB 14.7 g/dL (13.0-17.0); Lymphocytes % (A) 34.3 %; MCH 34.5 pg (27.0-32.0); MCHC 34.4 g/dL (32.0-37.0); MCV 100.2 FL (80.0-97.0); Mean Platelet Volume 10.5 FL (9.5-12.2); Monocytes % (A) 6.1 %; NRBC Per 100 WBC 0 X 10*3/uL (0.00-0.01); Neutrophils # (A) 4.63 X 10*3/uL (1.80-7.70); Neutrophils % (A) 56.6 %; Platelet Count 278 X 10*3/uL (140-440); RBC 4.26 X 10*6/uL (4.40-5.60); RDW 13.2 % (11.5-14.5); WBC 8.17 X 10*3/uL (4.50-10.00)
--- NOTE | 2023-07-26 18:57 | XR ---
EXAMINATION TYPE: XR chest 2V DATE OF EXAM: 07/26/2023 1:03 PM CLINICAL INDICATION:Male, 38 years old with history of Z01.818 PRE OP; H COMPARISON: None TECHNIQUE: XR chest 2V Frontal and lateral views of the chest. FINDINGS: Lungs/Pleura: There is no evidence of pleural effusion, focal consolidation, or pneumothorax. Pulmonary vascularity: Unremarkable. Heart/mediastinum: Cardiomediastinal silhouette is unremarkable. Musculoskeletal: No acute osseous pathology. Other findings: None IMPRESSION: No acute cardiopulmonary disease/process.
== END | disposition home or self-care (01) ==
LOC: LABPAT 12:26
PROVIDERS: ATTEND Orthopaedic Surgery Orthopaedic Surgery of the Spine
DX: Z01.818 Encounter for other preprocedural examination (principal); M54.10 Radiculopathy, site unspecified; R00.1 Bradycardia, unspecified; Z22.322 Carrier or suspected carrier of Methicillin resistant Staphylococcus aureus
CPT/HCPCS: 36415; 71046; 80048; 81003; 85025; 85610; 85730; 87070; 93005

== ENCOUNTER 2023-08-25 05:54 | Inpatient (IN) | payer BC ==
[2023-08-20 10:25] VITALS: BMI 22.3
[2023-08-25] MEDS: LACTATED RINGERS 1,000 ML IV SCH (06:05)
[2023-08-25] MEDS ORDERED: ONDANSETRON 4 MG/2 ML VIAL ONE (06:40)
[2023-08-25] MEDS: SCOPOLAMINE 1 MG/72 HR PATCH TRANSDERM ONE (06:45)
[2023-08-25] MEDS: ONDANSETRON 4 MG/2 ML VIAL IVP ONE (06:45)
[2023-08-25] MEDS ORDERED: KETAMINE HCL IN 0.9 % NACL 50 MG/5 ML SYRINGE ONE (07:23)
[2023-08-25] MEDS ORDERED: GLYCOPYRROLATE 0.2 MG/ML 2 ML VIAL ONE (07:23)
[2023-08-25] MEDS ORDERED: MIDAZOLAM 2 MG/2 ML VIAL ONE (07:23)
[2023-08-25] MEDS ORDERED: NEOSTIGMINE 1 MG/ML 10 ML VIAL ONE (07:23)
[2023-08-25] MEDS ORDERED: PROPOFOL 10 MG/ML 20 ML VIAL IV ONE (07:23)
[2023-08-25] MEDS ORDERED: DEXAMETHASONE SOD PHOSPHATE 10 MG/ML 1 ML VIAL ONE (07:23)
[2023-08-25] MEDS ORDERED: LIDOCAINE 1% INJ 10MG/ML (20 ML MDV) ONE (07:23)
[2023-08-25] MEDS ORDERED: SUCCINYLCHOLINE CHLORIDE 200 MG/10 ML VIAL IV ONE (07:23)
[2023-08-25] MEDS ORDERED: HYDROmorphone (PF) 1 MG/ML ONE (07:23)
[2023-08-25] MEDS ORDERED: fentaNYL (PF) 50 MCG/ML 2 ML AMP ONE (07:23)
[2023-08-25] MEDS ORDERED: ROCURONIUM 10 MG/ML (5 ML VIAL) IV ONE (07:23)
[2023-08-25] MEDS: ceFAZolin 1,000 MG in SODIUM CHLORIDE 0.9% IRRIGATIO 1,000 ML IRRIGATION PRN (07:27)
[2023-08-25] MEDS: GELATIN SPONGE,ABSORB (LARGE) 1 EACH SPONGE MISCELLANE ONE (07:55)
[2023-08-25] MEDS: LIDOCAINE 2%-EPI 1:100,000 20 ML VIAL SQ ONE ×2 (07:56→08:01)
[2023-08-25] MEDS: BUPIVACAINE (PF) 0.25% 30 ML VIAL SQ ONE ×2 (07:56→08:01)
[2023-08-25] MEDS: THROMBIN (BOVINE) 5,000 UNIT VIAL TOPICAL ONE (08:01)
[2023-08-25] MEDS: LACTATED RINGERS 1,000 ML IV ONE ×2 (08:47→09:47)
[2023-08-25] MEDS ORDERED: ONDANSETRON 4 MG/2 ML VIAL IVP PRN (10:37)
[2023-08-25] MEDS ORDERED: HYDROmorphone 1 MG/ML 1 ML SYRINGE IVP PRN (10:37)
--- NOTE | 2023-08-25 10:45 | P.OP ---
Date of Procedure: 08/25/23 Preoperative Diagnosis: Cervical myelopathy with severe cervical stenosis, Severe cervical stenosis see 3 4 C4-5 C5-6 C6-7, Disc herniation C3-4 C4-5 C5-6 C6-7, Upper extremity weakness, upper extremity radiculopathy, Postoperative Diagnosis: Same Anesthesia: GETA Pathology: none sent Condition: stable Disposition: PACU Description of Procedure: BRIEF OPERATIVE NOTE Preoperative Diagnosis:Cervical myelopathy with severe cervical stenosis, Severe cervical stenosis see 3 4 C4-5 C5-6 C6-7, Disc herniation C3-4 C4-5 C5-6 C6-7, Upper extremity weakness, upper extremity radiculopathy, Postoperative Diagnosis:Cervical myelopathy with severe cervical stenosis, Severe cervical stenosis see 3 4 C4-5 C5-6 C6-7, Disc herniation C3-4 C4-5 C5-6 C6-7, Upper extremity weakness, upper extremity radiculopathy, Procedure: Anterior cervical decompression with discectomy and fusion C3-4 C4-5 C5-6 C6-7 Placement of interbody graft C3-4 C4-5 C5-6 C6-7 Application of anterior cervical plate C3-4-5 6 and 7 Surgeon: Dr. Gates [facility] Staff: Josep NOEL who is present throughout the entire the case persistence during positioning, dissection, exposure, visualization, and all crucial elements of the case as well as closure. Anesthesia: General anesthesia Estimated blood loss: Approximately 100 cc Complications: None apparent Components implanted: Ryan K2 M [place] anterior cervical plate measuring 77 mm with 10 screws and ViKos interbody allograft bone graft with 1 cc of DBX bone putty Disposition: To recovery room in good stable condition. OPERATIVE INDICATIONS The patient has had long-standing issues in their neck and upper extremities. He was having worsening symptoms with weakness at his upper extremities and pain in his neck and his upper extremities. He was demonstrating weakness at his upper extremities with evidence of cervical myelopathy. Imaging showed severe stenosis at multiple levels at C3-4 C4-5 C5-6 and C6-7. All of these seem to be contributing to his symptoms and his myelopathic issues. He was having some cord signal change and was having significant debility due to this. The patient has been through conservative treatment. We discussed various treatment options including surgery, and the patient wishes to proceed with surgery We discussed the risk, patient's alternatives and benefits of surgery including but not limited to, risk of bleeding risk of infection, risk of need for further surgery, risk of decreased, loss of motion, muscle function, malunion nonunion, hardware failure, nerve damage, paralysis, heart attack, and . OPERATIVE SUMMARY After discussing all the risks, patient alternatives and benefits at length, the patient elected to proceed with surgical intervention, signed informed consent, and presented for their procedure. The patient was seen and examined in the preoperative holding area and the surgical site was marked. The patient was given antibiotics and brought to the operating room. The patient was positioned on the operating room table in a supine position being careful to pad any bony prominences and pressure points. The patient was sedated and intubated by anesthesia in standard fashion. Once the airway and C- spine were stabilized the patient's arms were padded and tucked at her side, with her shoulders gently taped. The head was placed in a donut pad with the neck in good neutral alignment and position. We were careful to maintain the patient's cervical spine and good neutral alignment and position throughout. The patient was prepped and draped in a normal standard fashion. An appropriate timeout and keystone protocol performed. We were able to proceed with the surgery. The local wound area was infiltrated with local anesthetic. An incision was made longitudinally approximately 3 and half centimeters on the right over the appropriate levels from C3-C7. Dissection was taken down subcutaneously to the level of the platysma which was split in line with its fibers. Dissection was taken with a carotid approach, with the trachea and esophagus medial and the carotid sheath laterally. We dissected down to the anterior surface of the vertebral bodies. Intraoperative x-ray was taken which showed a marker at the appropriate level. With the appropriate level positively confirmed, we were able to proceed with discectomy at the appropriate levels. All of the operative levels were exposed appropriately. The patient had all their twitches back, and there was no evidence of recurrent laryngeal issue. The wound was copiously irrigated and suctioned dry as had been done periodically throughout the case. At the appropriate level/levels, I started at C6-7 and then moved to C5-6 and then C 4 5 and then C3-4, I established an annulotomy with an 11 blade scalpel. A discectomy was performed with a combination of pituitary rongeurs, curettes, a high-speed bur, and Kerrison rongeurs. The posterior longitudinal ligament was taken down as were any posterior osteophytes. This gave good central and bilateral foraminal decompression. There is no evidence of any dural tear or leak. The endplates were prepared with a high-speed bur. With the endplates in good parallel position, I was able to size for the appropriate size interbody graft. The wound was irrigated and suctioned dry the graft was prepared and malleted into position. It had good alignment and position with the anterior surface flush with the anterior surface of the vertebral bodies. This was done similarly the appropriate levels first at C6-7 and then C5-6 and then at C4-5 and then C3-4. Each level had significant change with significant disc protrusion with herniation and evidence of central and bilateral foraminal stenosis. This was remedied with a decompression and discectomy. With the grafts intact, I was able to measure and contour and appropriate sized plate. The plate was positioned at the midline over the appropriate levels from C3-C7. Screw holes were established with a hand drill and drill guide. Screws were placed in good alignment and position with excellent bony purchase. They were seated under the locking device. The construct was checked and found to be stable. Intraoperative x-ray was taken which showed good alignment and position of the implants at the appropriate levels. There was no evidence of any dural tear or leak. Good hemostasis was maintained. The wound was copiously irrigated and suctioned dry as had been done periodically throughout the case. The platysma was closed with absorbable suture. The subcutaneous tissue was closed. The subcuticular tissue was closed with absorbable suture. The wound was cleaned and dried and dressed appropriately. A soft cervical collar was placed appropriately. The patient was woken up by anesthesia, extubated, transferred back gently to their hospital bed and brought to the recovery room in good stable condition. The patient will be admitted to the hospital for appropriate postoperative care, medical management and monitoring. We will continue to follow them closely about the postoperative course.
[2023-08-25] MEDS: HYDROmorphone 0.5 MG/0.5 ML SYRINGE IVP ONE ×2 (11:34→11:56)
--- NOTE | 2023-08-25 11:45 | XR ---
EXAMINATION TYPE: XR cervical spine 1V, FL guidance operating room DATE OF EXAM: 08/25/2023 COMPARISON: NONE HISTORY: 38-year-old male ACDF surgery FINDINGS: Cerv fusion surgery in OR with Dr. Gates. Fl time 4 secs; DAP 0.1039 Gycm2. IMPRESSION: Intraoperative fluoroscopy as above.
[2023-08-25] MEDS: SODIUM CHLORIDE 0.9% 1,000 ML IV SCH (14:41)
[2023-08-25] MEDS: HYDROmorphone 0.5 MG/0.5 ML SYRINGE IVP PRN (17:38)
[2023-08-25] MEDS: BENZOCAINE/MENTHOL LOZENG 1 EACH LOZENGE MUCOUS MEM PRN (20:00)
[2023-08-25] MEDS: HYDROcodone/APAP 5-325MG 1 EACH TAB PO PRN (20:00)
[2023-08-26] MEDS: CYCLOBENZAPRINE 10 MG TAB PO PRN (00:27)
[2023-08-26] MEDS: MULTIVITAMINS, THERA 1 EACH TAB PO SCH (08:26)
[2023-08-26] MEDS: SENNOSIDES-DOCUSATE SODIUM 1 EACH TAB PO SCH (08:26)
--- NOTE | 2023-08-26 08:51 | P.DS ---
Providers Date of admission: 08/25/23 05:54 Attending physician: Pj Gates Primary care physician: [facility] Course: The patient presented on the day of admission as per their operative note. He had severe cervical stenosis with cervical myelopathy stemming from the disc herniation and stenosis at C3-4 C4-5 C5-6 and C6-7. He feels his surgery is gone well. He feels his arms are less numb. He has been tolerating his diet and ambulating in his room. He is voiding freely. His pain is controlled with oral medication. Physical Exam The incision site is clean dry and intact. There is no erythema no drainage. There is no purulence no evidence of infection. His neck is soft and supple. There is no significant swelling Abdomen soft and nontender. Chest has good excursion with deep inspiration and expiration. The patient has active and passive range of motion intact at the upper and lower extremities. There is no acute change in neurologic status. He has good motion of his arms and hands. Hospital Course Postoperative day #1 status post anterior cervical decompression with discectomy and fusion C3-4 C4-5 C5-6 C6-7 for his severe cervical stenosis with cervical myelopathy and disc herniation upper extremity radicular symptoms. Thus far the patient feels happy with his results and is doing well. The patient has been making good progress postoperatively. They have completed the prophylactic antibiotics without any signs or symptoms of infection. The patient has been able to advance their diet, and is tolerating diet adequately. The pain was initially controlled with IV medications and is now controlled appropriately with oral medications. The patient has been able to increase their mobilization. The patient has progressed appropriately. I think they are in good stable condition for discharge today. They will be sent home with appropriate prescriptions. I answered their questions to the best of my ability in a language that they can understand and they are agreeable with the plan. They will follow up as directed in approximately a week or sooner if he is having any problems. Patient Condition at Discharge: Good Plan - Discharge Summary Discharge Rx Participant: Yes New Discharge Prescriptions: New traMADol HCL 50 mg PO Q6H PRN 7 Days #28 tab PRN Reason: Pain No Action Ibuprofen 800 mg PO Q8H PRN PRN Reason: Pain Zinc (Unknown Dose) 1 tab PO DAILY Multivitamins, Thera [Multivitamin (formulary)] 1 tab PO DAILY Discharge Medication List Ibuprofen 800 mg PO Q8H PRN 08/20/23 [History] Multivitamins, Thera [Multivitamin (formulary)] 1 tab PO DAILY 08/20/23 [History] Zinc (Unknown Dose) 1 tab PO DAILY 08/20/23 [History] traMADol HCL 50 mg PO Q6H PRN 7 Days #28 tab 08/26/23 [Rx] Follow up Appointment(s)/Referral(s): Pj Gates DO [Doctor of Osteopathic Medicine] - 1 Week (Patient is already scheduled for appointment in approximately 1 week) Patient Instructions/Handouts: *Surgery [facility] - Scopalamine Patch Instructions Activity/Diet/Wound Care/Special Instructions: Keep site clean. May shower with waterproof Tegaderm intact. Do not soak in a tub. After 72 hours postoperatively, patient May remove dressing and then may shower with area uncovered. Leave glue intact and allow it to fray off on its own. May ambulate as tolerated. Avoid heavy or rigorous activity. No repetitive bending twisting or lifting. No overhead work. Discharge Disposition: HOME SELF-CARE
[2023-08-26] MEDS ORDERED: ZINC PO SCH (09:00)
[2023-08-26 09:06] VITALS: BP 98/53; PULSE 51; RESP 18; TEMP 98.6
== END 2023-08-26 13:20 | disposition home or self-care (01) | DRG 473 ==
LOC: 2ORMAIN 05:54 → 4SSUR 10:55
PROVIDERS: ADMIT Orthopaedic Surgery Orthopaedic Surgery of the Spine; ATTEND Orthopaedic Surgery Orthopaedic Surgery of the Spine
PROC: 0RB30ZZ Excision of Cervical Vertebral Disc, Open Approach (ICD-10-PCS; 2023-08-25)
PROC: 01N10ZZ Release Cervical Nerve, Open Approach (ICD-10-PCS; 2023-08-25)
PROC: 4A11X4G Monitoring of Peripheral Nervous Electrical Activity, Intraoperative, External Approach (ICD-10-PCS; 2023-08-25)
PROC: 0RG20A0 Fusion of 2 or more Cervical Vertebral Joints with Interbody Fusion Device, Anterior Approach, Anterior Column, Open Approach (ICD-10-PCS; principal; 2023-08-25 07:30)
DX: M50.023 Cervical disc disorder at C6-C7 level with myelopathy (principal); M25.78 Osteophyte, vertebrae; M50.123 Cervical disc disorder at C6-C7 level with radiculopathy; M48.02 Spinal stenosis, cervical region; M51.26 Other intervertebral disc displacement, lumbar region; M51.36 Other intervertebral disc degeneration, lumbar region; Z87.81 Personal history of (healed) traumatic fracture; Z71.6 Tobacco abuse counseling; F17.210 Nicotine dependence, cigarettes, uncomplicated
CPT/HCPCS: 72020